=== PATIENT | female | born 1970 | race African-American/Black ===

== ENCOUNTER 2016-08-18 13:24 | Emergency (ER) | payer OTHER ==
[~2016-08-18] VITALS: Ht 162.6 cm; Wt 70.3 kg
[~2016-08-18 13:24] MED LIST: AMOXICILLIN875 MG PO; DARVOCET-N 1001 EACH PO; FLAGYL500 MG PO; IBUPROFEN 800800 MG PO; LISINOPRIL-HCT1 EACH PO; LISINOPRIL2.5 MG PO; NOHOMEMEDICATIONS; NORCO 5-325 TA1 EACH PO; PROMETHAZINE-C120 ML PO; ZOFRAN4 MG PO
[2016-08-18] MEDS ORDERED: AZITHROMYCIN 2250 MG PO (14:30)
[2016-08-18] MEDS ORDERED: PROAIR HFA8.5 GM INH (14:30)
[2016-08-18] MEDS ORDERED: IBUPROFEN 600600 M1 PO (14:30)
[2016-08-18] MEDS ORDERED: PROMETHAZINE-D120 ML PO (14:30)
[2016-08-18] MEDS ORDERED: PREDNISONE 20 M20 MG PO (14:30)
[2016-08-18] MEDS ORDERED: NORCO 5-325 TA1 EACH PO (14:30)
[2016-08-18 15:04] VITALS: BP 147/89
== END 2016-08-18 15:04 | disposition home or self-care (01) ==
LOC: ER 13:24
DX: J40 Bronchitis, not specified as acute or chronic (principal); I10 Essential (primary) hypertension; Z90.49 Acquired absence of other specified parts of digestive tract

== ENCOUNTER → 2017-05-29 | Outpatient (CLI) | payer OTHER ==
[~2017-05-29] MED LIST changes: +AMLODIPINE BESY10 MG PO; +AZITHROMYCIN 2250 MG PO; +CYCLOBENZAPRINE5 MG PO; +IBUPROFEN 600600 M1 PO; +PREDNISONE 20 M20 MG PO; +PROAIR HFA8.5 GM INH; +PROMETHAZINE-D120 ML PO
== END ==
LOC: RAD 10:30
DX: Z12.31 Encounter for screening mammogram for malignant neoplasm of breast (principal)

== ENCOUNTER 2017-09-29 07:54 | Emergency (ER) | payer BC ==
[~2017-09-29] VITALS: Ht 165.1 cm; Wt 72.1 kg
[2017-09-29 10:07] LABS: URINE BILIRUBIN NEGATIVE (Negative); URINE BLOOD 2+ (Negative); URINE CLARITY CLOUDY; URINE COLOR YELLOW; URINE GLUCOSE-RANDOM* NEGATIVE (Negative); URINE KETONES NEGATIVE (Negative); URINE NITRITE-REFLEX NEGATIVE (Negative); URINE PROTEIN (DIPSTICK) 1+ (Negative); URINE SPECIFIC GRAVITY >= 1.030 (1.005-1.035); URINE UROBILINOGEN 0.2 E.U./dl (0.2-1.0)
[2017-09-29 10:09] LABS: URINE LEUKOCYTES-REFLEX 2+ (Negative)
[2017-09-29] MEDS ORDERED: KEFLEX500 M1 PO (10:14)
[2017-09-29 10:18] LABS: BACTERIA-REFLEX >30 Many /HPF (None Seen); CASTS None Seen /LPF (None Seen); SQUAMOUS >10 Many /LPF (0-3); URINE WBC-REFLEX >25 Many /HPF (0-5)
[2017-09-29 10:19] LABS: AMORPHOUS URATES Moderate /LPF (None Seen); URINE RBC 3-10 Few /HPF (0-2)
== END 2017-09-29 11:02 | disposition home or self-care (01) ==
LOC: ER 07:54
PROVIDERS: Emergency Medicine
DX: I10 Essential (primary) hypertension (principal); N72 Inflammatory disease of cervix uteri; Z90.49 Acquired absence of other specified parts of digestive tract

== ENCOUNTER 2018-06-03 08:38 | Emergency (ER) | payer BC ==
[~2018-06-03] VITALS: Ht 162.6 cm; Wt 69.8 kg
[~2018-06-03 08:38] MED LIST changes: +KEFLEX500 M1 PO
[2018-06-03] MEDS ORDERED: NORCO 5-325 TA1 EACH PO (09:24)
[2018-06-03] MEDS ORDERED: PREDNISONE 20 M20 MG PO (09:24)
[2018-06-03] MEDS ORDERED: CYCLOBENZAPRINE5 MG PO (09:24)
[2018-06-03 09:47] VITALS: BP 128/82
== END 2018-06-03 09:40 | disposition home or self-care (01) ==
LOC: ER 08:38
DX: M51.26 Other intervertebral disc displacement, lumbar region (principal); I10 Essential (primary) hypertension; Z98.890 Other specified postprocedural states; Z90.49 Acquired absence of other specified parts of digestive tract; Z90.710 Acquired absence of both cervix and uterus

== ENCOUNTER 2018-11-05 14:07 | Emergency (ER) | payer BC ==
[~2018-11-05] VITALS: Ht 167.6 cm; Wt 63.5 kg
[2018-11-05] MEDS ORDERED: PRINIVIL5 MG PO (15:02)
[2018-11-05 16:03] LABS: URINE BILIRUBIN NEGATIVE (Negative); URINE BLOOD TRACE (Negative); URINE CLARITY CLEAR; URINE COLOR YELLOW; URINE GLUCOSE-RANDOM* NEGATIVE (Negative); URINE KETONES NEGATIVE (Negative); URINE NITRITE-REFLEX NEGATIVE (Negative); URINE PROTEIN (DIPSTICK) NEGATIVE (Negative); URINE UROBILINOGEN 0.2 E.U./dl (0.2-1.0)
[2018-11-05 16:05] LABS: URINE LEUKOCYTES-REFLEX 3+ (Negative)
[2018-11-05 16:11] LABS: BACTERIA-REFLEX 1-9 Few /HPF (None Seen); CASTS None Seen /LPF (None Seen); CRYSTALS None Seen /LPF (None Seen); SQUAMOUS 0-3 Few /LPF (0-3); URINE RBC 0-2 Rare /HPF (0-2)
[2018-11-05 16:16] VITALS: BP 122/82
== END 2018-11-05 16:17 | disposition home or self-care (01) ==
LOC: ER 14:07
PROVIDERS: Emergency Medicine
DX: A59.01 Trichomonal vulvovaginitis (principal); I10 Essential (primary) hypertension; Z98.890 Other specified postprocedural states; Z90.49 Acquired absence of other specified parts of digestive tract; Z90.710 Acquired absence of both cervix and uterus

== ENCOUNTER 2019-07-21 09:10 | Emergency (ER) | payer BC ==
[~2019-07-21] VITALS: Ht 162.6 cm; Wt 68.0 kg
[~2019-07-21 09:10] MED LIST changes: +PRINIVIL5 MG PO
[2019-07-21 09:37] LABS: URINE BILIRUBIN NEGATIVE (Negative); URINE BLOOD NEGATIVE (Negative); URINE CLARITY CLEAR; URINE COLOR YELLOW; URINE GLUCOSE-RANDOM* NEGATIVE (Negative); URINE KETONES NEGATIVE (Negative); URINE LEUKOCYTES-REFLEX NEGATIVE (Negative); URINE NITRITE-REFLEX NEGATIVE (Negative); URINE PROTEIN (DIPSTICK) TRACE (Negative); URINE SPECIFIC GRAVITY >= 1.030 (1.005-1.035); URINE UROBILINOGEN 0.2 E.U./dl (0.2-1.0)
[2019-07-21 10:55] LABS: ABSOLUTE NEUTROPHILS 4.1 thou/uL (1.4-8.2); BASOPHILS 0.3 % (0.0-2.0); EOSINOPHILS 0.6 % (0.0-3.0); HEMOGLOBIN 12.5 gm/dL (12.0-15.0); LYMPHOCYTES 18.2 % (24.0-44.0); MCH 29.4 pg (26.0-34.0); MCHC 33.7 g/dL (28.0-37.0); MCV 87.3 fL (80.0-100.0); MONOCYTES 6.8 % (1.0-8.0); PLATELET COUNT 188 thou/uL (150-400); POLYS 74.1 % (36.0-66.0); RBC 4.24 mil/uL (4.20-5.00); RDW 13.4 % (10.5-14.5); WBC 5.5 thou/uL (4.0-11.0)
[2019-07-21 11:23] LABS: CALCIUM 9.2 mg/dL (8.5-10.1); CREATININE 0.9 mg/dL (0.6-1.0); POTASSIUM 3.6 mmol/L (3.5-5.1)
[2019-07-21] MEDS ORDERED: ONDANSETRON ODT4 MG PO (12:21)
[2019-07-21 12:49] VITALS: BP 125/81
== END 2019-07-21 12:50 | disposition home or self-care (01) ==
LOC: ER 09:10
PROVIDERS: Emergency Medicine
DX: R19.7 Diarrhea, unspecified (principal); R11.2 Nausea with vomiting, unspecified; I10 Essential (primary) hypertension; Z98.51 Tubal ligation status; Z98.890 Other specified postprocedural states; Z90.49 Acquired absence of other specified parts of digestive tract; Z90.710 Acquired absence of both cervix and uterus